=== PATIENT | female | born 1975 | race American Indian/Alaskan Native ===

== ENCOUNTER 2020-07-25 05:48 | Emergency (ER) | payer SELFPAY ==
--- NOTE | 2020-07-25 08:46 | Emergency Department Report ---
Chief Complaint: Sore Throat Stated Complaint: SORE THROAT/HEADACHE/VOMITING - HPI History of Present Illness: This is a 44-year-old -[place] female presents to the emergency room complaining of intermittent dry cough sore throat and was recently contacted with a Covid positive person her sister. Patient denies any fever admits to a little chills and a little body aches. She states she took BC powders which helped. She went to work today and was sent home. She does have a past medical history of hypertension and diabetes. She takes nifedipine 60 mg daily and Metformin 1000 mg twice a day. Patient states she drinks plenty of water. States that she had vomited 2 times last night with a decreased appetite. She does admit to having Covid back in November 2019. Patient has not received her Covid vaccination. - Exam Vital Signs: Vital Signs 07/25/20 06:22 Temperature 98.6 F Pulse Rate 86 Respiratory 18 Rate Blood Pressure 135/58 O2 Sat by Pulse 98 Oximetry Physical Exam: General: Awake, appropriately interactive, no acute distress. Neck: Supple. Full range of motion intact. Cardiovascular: Normal peripheral perfusion. Pulmonary: No respiratory distress. Patient is speaking normally without use of accessory muscles. Skin: No apparent rashes or lesions. Neurological: No facial asymmetry. Speech is clear. Follows commands. Patient is alert and oriented. Musculoskeletal: Full range of motion, no crepitus. No tenderness to palpate nonerythematous no edema test appreciated. Able to bear weight and ambulate without difficulty. Distal neurovascular and motor/sensory function is intact. Psych: Cooperative. Appropriate mood and affect. MSE screening note: Focused history and physical exam performed. Due to findings the following was ordered: This is a 44-year-old -[place] female presents to the emergency room complaining of intermittent dry cough sore throat and was recently contacted with a Covid positive person her sister. Patient denies any fever admits to a little chills and a little body aches. She states she took BC powders which helped. She went to work today and was sent home. She does have a past medical history of hypertension and diabetes. She takes nifedipine 60 mg daily and Metformin 1000 mg twice a day. Patient states she drinks plenty of water. States that she had vomited 2 times last night with a decreased appetite. She does admit to having Covid back in November 2019. Patient has not received her Covid vaccination. Discussed with patient continue taking ibuprofen or Tylenol for pain warm salt gargles. Get a Covid test. Quarantine for the next 14 days based on her Covid results. ED Disposition for MSE Disposition: MED SCREENING EXAM-LEFT Is pt being admited?: No Does the pt Need Aspirin: No Condition: Stable Additional Instructions: Your symptoms appear most consistent with a nonspecific viral syndrome. However, given this current pandemic, COVID-19 is in the differential of possibilities. Despite your previous negative COVID-19 test, I do recommend repeat outpatient Covid 19 testing. In the meantime, isolate/quarantine yourself and stay away from anyone who is elderly, immunocompromised or chronically ill. You can use ibuprofen every 6-8 hours and Tylenol every 4-8 hours, using the dosing on the back of the bottle, as needed for any fever or body aches. Return to the emergency department with any worsening of your symptoms, development of chest pain or shortness of breath, or with any acute distress. Handout given for Covid testing Referrals: Your, primary care provider. [Other] - 3-5 Days Forms: Work/School Release Form(ED)
[2020-07-25 09:02] VITALS: BP 148/89
== END 2020-07-25 09:15 | disposition left against medical advice (07) ==
LOC: ED 05:48
DX: J02.9 Acute pharyngitis, unspecified (principal); Z53.21 Procedure and treatment not carried out due to patient leaving prior to being seen by health care provider